=== PATIENT | female | born 1955 | race Caucasian/White ===

== ENCOUNTER 2023-10-29 07:17 | Day surgery (SDC) | payer OTHER ==
[~2023-10-29] VITALS: Ht 170.2 cm; Wt 99.8 kg
[~2023-10-29 07:17] MED LIST: ceFAZolin SODIUM 2 GM in D5W 100 ML IV ONE
[2023-10-29 08:58] VITALS: O2SAT 96
[2023-10-29] MEDS ORDERED: BUPIVACAINE /PF 0.25% 30 ML VIAL INJ ONE (10:55)
[2023-10-29] MEDS ORDERED: ROCURONIUM BROMIDE 10 MG/ML (ZEMURON) ONE (10:55)
[2023-10-29] MEDS ORDERED: SEVOFLURANE 15 MIN GAS INH ONE (10:55)
[2023-10-29] MEDS ORDERED: PHENYLEPHRINE HCL 10 MG/ML VIAL (NEOSYNEPHRINE) ONE (10:55)
[2023-10-29] MEDS ORDERED: NS IRRIG SOLN 1000 ML IR ONE (10:55)
[2023-10-29] MEDS ORDERED: MIDAZOLAM HCL 2 MG/2 ML VIAL (VERSED) ONE (10:55)
[2023-10-29] MEDS ORDERED: ONDANSETRON HCL 4 MG/2 ML VIAL ONE (10:55)
[2023-10-29] MEDS ORDERED: fentaNYL CITRATE/PF 100 MCG/2 ML AMP ONE (10:55)
[2023-10-29] MEDS ORDERED: WATER FOR IRRIGATION,STERILE 1,000 ML IRRIG.SOLN IR ONE (10:55)
[2023-10-29] MEDS ORDERED: NS 1000 ML IV.SOLN IV ONE (10:55)
[2023-10-29] MEDS ORDERED: PROPOFOL 200MG/ 20ML VIAL (DIPRIVAN) IV ONE (10:55)
[2023-10-29] MEDS ORDERED: GLYCOPYRROLATE 0.2 MG/ML VIAL ONE (10:55)
[2023-10-29] MEDS ORDERED: LIDOCAINE 1% 10 MG/ML, 20 ML MDV ONE (10:55)
[2023-10-29] MEDS ORDERED: METOCLOPRAMIDE HCL 10 MG/2 ML VIAL ONE (10:55)
[2023-10-29] MEDS ORDERED: ACETAMINOPHEN I.V. 1000 MG 100 ML IV ONE (11:52)
[2023-10-29] MEDS ORDERED: HYDROmorphone 1 MG/ML INJ. CARTRIDGE IVP PRN (12:00)
[2023-10-29] MEDS ORDERED: ONDANSETRON HCL 4 MG/2 ML VIAL IVP PRN (12:00)
[2023-10-29] MEDS ORDERED: LR 1,000 ML IV SCH (12:00)
[2023-10-29] MEDS ORDERED: HYDROmorphone 2 MG/ML VIAL IVP PRN (12:00)
[2023-10-29] MEDS ORDERED: KETOROLAC TROMETHAMINE 30 MG VIAL IVP PRN (12:00)
[2023-10-29 15:16] VITALS: BP_SYST 121; PULSE 75; RESP 20
== END 2023-10-29 14:40 | disposition home or self-care (01) ==
LOC: SDS 07:17 → SMU 07:19 → SDS 14:40
PROVIDERS: ATTEND Surgery
DX: K80.10 Calculus of gallbladder with chronic cholecystitis without obstruction (principal); R10.11 Right upper quadrant pain; I10 Essential (primary) hypertension; E11.40 Type 2 diabetes mellitus with diabetic neuropathy, unspecified; E66.01 Morbid (severe) obesity due to excess calories; E78.5 Hyperlipidemia, unspecified; Z68.31 Body mass index [BMI] 31.0-31.9, adult; Z79.84 Long term (current) use of oral hypoglycemic drugs; Z98.890 Other specified postprocedural states; Z79.899 Other long term (current) drug therapy
CPT/HCPCS: 47562; 87081; 82948; 88304; J3490 ×2; J0690; J2765; J3465; J2405; J2370; J2704; J3010; J7060; J7030; C1727; J0131; J2001